=== PATIENT | male | born 1960 | race Caucasian/White ===

== ENCOUNTER 2020-09-03 16:22 | Emergency (ER) | payer MEDICAID ==
--- NOTE | 2020-09-03 16:40 | EDM.PDOC ---
ED HPI GENERAL MEDICAL PROBLEM - General Chief Complaint: General Stated Complaint: SOB/COVID SYMPTOMS Time Seen by Provider: 09/03/20 16:29 Source of Information: Reports: Patient History Limitations: Reports: No Limitations - History of Present Illness INITIAL COMMENTS - FREE TEXT/NARRATIVE: 60 YO WM PRESENTS TO ER COMPLAINING OF FLU-LIKE SYMPTOMS X 3 DAYS WITH KNOWN POSITIVE COVID TEST BY PCR OF 09/01/2020. PT WAS SEEN IN CLINIC AND STARTED ON A MEDROL DOSE PACK. PT REPORTS TODAY HIS SYMPTOMS HAVE BECOME WORSE WITH INCREASED BODY ACHES, HEADACHE AND SHORTNESS OF BREATH. PT WITH HISTORY OF COPD BUT DENIES USING HIS INHALERS. PT ALSO WITH FEVER BUT DENIES TAKING TYLENOL. PT HAS TAKEN ONLY 1/2 DAY DOSE OF PREDNISONE AT THIS TIME EVEN THOUGH MEDICATION WAS PRESCRIBED 3 DAYS AGO. Duration: Day(s): (2) Location: Reports: Generalized Quality: Reports: Ache Severity: Mild Improves with: Reports: None Worsens with: Reports: None Associated Symptoms: Reports: Cough, Fever/Chills, Headaches, Malaise, Shortness of Breath, Weakness. Denies: Nausea/Vomiting - Related Data Allergies Allergy/AdvReac Type Severity Reaction Status Date / Time No Known Allergies Allergy Verified 09/03/20 16:42 Home Meds: Home Meds Albuterol Sulfate [Albuterol Sulfate Hfa] 8.5 gm IH Q4HR #1 hfa.aer.ad 09/03/20 [Rx] dexAMETHasone [Decadron] 6 mg PO DAILY #5 tablet 09/03/20 [Rx] ED ROS GENERAL - Review of Systems Review Of Systems: See Below Constitutional: Reports: Fever, Chills, Malaise, Weakness, Fatigue HEENT: Reports: Rhinitis Respiratory: Reports: Cough Cardiovascular: Reports: No Symptoms Endocrine: Reports: No Symptoms GI/Abdominal: Reports: No Symptoms : Reports: No Symptoms Musculoskeletal: Reports: Joint Pain, Muscle Pain Skin: Reports: No Symptoms Neurological: Reports: No Symptoms Psychiatric: Reports: No Symptoms Hematologic/Lymphatic: Reports: No Symptoms Immunologic: Reports: No Symptoms ED EXAM, GENERAL - Physical Exam Exam: See Below Exam Limited By: No Limitations General Appearance: Alert, WD/WN, No Apparent Distress Nose: Normal Inspection, Normal Mucosa, No Blood Throat/Mouth: Normal Inspection, Normal Lips, Normal Teeth, Normal Gums, Normal Oropharynx, Normal Voice, No Airway Compromise Head: Atraumatic, Normocephalic Neck: Normal Inspection, Supple, Non-Tender, Full Range of Motion Respiratory/Chest: No Respiratory Distress, No Accessory Muscle Use, Chest Non- Tender, Wheezing Cardiovascular: Normal Peripheral Pulses, Regular Rate, Rhythm, No Edema, No Gallop, No JVD, No Murmur, No Rub GI/Abdominal: Normal Bowel Sounds, Soft, Non-Tender, No Organomegaly, No Distention, No Abnormal Bruit, No Mass Back Exam: Normal Inspection, Full Range of Motion, NT Extremities: Normal Inspection, Normal Range of Motion, Non-Tender, Normal Capillary Refill, No Pedal Edema Neurological: Alert, Oriented, CN II-XII Intact, Normal Cognition, Normal Gait, Normal Reflexes, No Motor/Sensory Deficits Psychiatric: Normal Affect, Normal Mood Skin Exam: Warm, Dry, Intact, Normal Color, No Rash Lymphatic: No Adenopathy #1 Interpretation EKG Date: 09/03/20 Time: 16:49 Rhythm: NSR Rate (Beats/Min): 121 [place]: Normal P-Wave: Present QRS: Normal ST-T: Normal QT: Normal Comparison: NA - No Prior EKG Course - Vital Signs Last Recorded V/S: Last Vital Signs Temp 38.7 C H 09/03/20 16:30 Pulse 123 H 09/03/20 16:30 Resp 28 H 09/03/20 16:30 BP 139/87 09/03/20 16:30 Pulse Ox 92 L 09/03/20 16:30 - Orders/Labs/Meds Orders: Active Orders 24 hr Category Date Time Status EKG Documentation Completion [RC] ASDIRECTED Care 09/03/20 16:47 Active Peripheral IV Care [RC] . DIRECTED Care 09/03/20 16:46 Active RT Aerosol Therapy [RC] ASDIRECTED Care 09/03/20 16:47 Active RT Post Treatment Assessment [RC] Click to Edit Care 09/03/20 18:08 Active RT Pre-Treatment Assessment [RC] Click to Edit Care 09/03/20 18:08 Active Albuterol [Ventolin HFA] Med 09/03/20 18:08 Once 8 gm INH ONETIME ONE Sodium Chloride 0.9% [Saline Flush] Med 09/03/20 16:46 Active 10 ml FLUSH Q8HR PRN Isolation [COMM] Routine Oth 09/03/20 16:29 Ordered Peripheral IV Insertion Adult [OM.PC] Routine Oth 09/03/20 16:46 Ordered EKG 12 Lead [EK] Stat Ther 09/03/20 16:46 Ordered Medication Orders Albuterol (Ventolin Hfa) 8 gm INH ONETIME ONE Stop: 09/03/20 18:09 Sodium Chloride (Saline Flush) 10 ml FLUSH Q8HR PRN PRN Reason: keep vein open Labs: Laboratory Tests 09/03/20 09/03/20 Range/Units 17:20 17:20 WBC 8.67 (5.00-10.00) 10^3/uL RBC 5.25 (4.50-6.00) 10^6/uL Hgb 15.8 (13.0-17.0) g/dL Hct 47.0 (40.0-52.0) % MCV 89.5 (82.0-92.0) fL MCH 30.1 (27.0-31.0) pg MCHC 33.6 (32.0-36.0) g/dL RDW 13.7 (11.5-14.5) % Plt Count 221 (150-400) 10^3/uL MPV 10.5 H (7.4-10.4) fL Immature Gran % (Auto) 0.1 (0.0-5.0) % Neut % (Auto) 87.9 H (50.0-70.0) % Lymph % (Auto) 6.5 L (20.0-40.0) % [place] % (Auto) 5.2 (2.0-8.0) % Eos % (Auto) 0.1 L (1.0-3.0) % Baso % (Auto) 0.2 (0.0-1.0) % Neut # (Auto) 7.62 H (2.50-7.00) 10^3/uL Lymph # (Auto) 0.56 L (1.00-4.00) 10^3/uL [place] # (Auto) 0.45 (0.10-0.80) 10^3/uL Eos # (Auto) 0.01 L (0.10-0.30) 10^3/uL Baso # (Auto) 0.02 (0.00-0.10) 10^3/uL Immature Gran # (Auto) 0.01 (0.00-0.50) 10^3/uL Sodium 139 (136-145) mmol/L Potassium 4.0 (3.3-5.3) mmol/L Chloride 99 (98-115) mmol/L Carbon Dioxide 28.3 (21.0-32.0) mmol/L Anion Gap 15.7 H (5-15) mmol/L BUN 19 (6-25) mg/dL Creatinine 0.76 (0.51-1.17) mg/dL Est Cr Clr Drug Dosing 104.06 mL/min Estimated GFR (MDRD) > 60 mL/min Glucose 97 (75 - 99) mg/dL Calcium 8.6 L (8.7-10.3) mg/dL Total Bilirubin 0.3 (0.2-1.0) mg/dL AST 40 H (15-37) U/L ALT 65 (12-78) U/L Alkaline Phosphatase 69 (46-116) IU/L Total Protein 7.7 (6.4-8.2) g/dL Albumin 3.65 (3.00-4.80) g/dL Meds: Medications Generic Name Dose Route Start Last Admin Trade Name Freq PRN Reason Stop Dose Admin Albuterol 8 gm 09/03/20 18:08 Ventolin Hfa INH 09/03/20 18:09 ONETIME ONE Sodium Chloride 10 ml 09/03/20 16:46 Saline Flush FLUSH Q8HR PRN keep vein open Discontinued Medications Generic Name Dose Route Start Last Admin Trade Name Freq PRN Reason Stop Dose Admin Acetaminophen 1,000 mg 09/03/20 16:46 09/03/20 17:25 Tylenol Extra Strength PO 09/03/20 16:47 1,000 mg ONETIME ONE Administration Albuterol/Ipratropium 3 ml 09/03/20 16:46 09/03/20 17:35 Duoneb 3.0-0.5 Mg/3 Ml NEB 09/03/20 16:47 3 ml ONETIME ONE Administration Dexamethasone 6 mg 09/03/20 17:41 09/03/20 17:51 Decadron IVPUSH 09/03/20 17:42 6 mg ONETIME ONE Administration Sodium Chloride 1,000 mls @ 999 mls/hr 09/03/20 16:46 09/03/20 17:24 Normal Saline IV 09/03/20 17:46 999 mls/hr .BOLUS ONE Administration - Radiology Interpretation Free Text/Narrative:: CXR- COARSE PULMONARY INFILTRATES CONSISTENT WITH VIRAL PNEUMONIA - Re-Assessments/Exams Free Text/Narrative Re-Assessment/Exam: 09/03/20 17:48 PT REPORTS HE'S FEELING BETTER. SHORTNESS OF BREATH IMPROVED. BODY ACHES AND HEADACHE IMPROVED. SAO2-97% ON RA Departure - Departure Time of Disposition: 17:57 Disposition: Home, Self-Care 01 Condition: Fair Clinical Impression: Pneumonia due to COVID-19 virus - Discharge Information Prescriptions: Albuterol Sulfate [Albuterol Sulfate Hfa] 8.5 gm IH Q4HR #1 hfa.aer.ad dexAMETHasone [Decadron] 6 mg PO DAILY #5 tablet Instructions: Community-Acquired Pneumonia, Adult Referrals: Gregorio Keen, SALES REPRES[employer]IVE CONSULTANT [Primary Care Provider] - Forms: ED Department Discharge Additional Instructions: 1. DISCHARGE HOME 2. DECADRON 6MG DAILY X 5 DAYS 3. ALBUTEROL HFA 2 PUFFS EVERY 4 HOURS AND NEEDED 4. MOTRIN 600MG EVERY 6 HOURS 5. TYLENOL 1000MG EVERY 6 HOURS 6. FOLLOW UP IN CLINIC IN 2 DAYS FOR RECHECK 7. RETURN TO ER FOR WORSENING SYMPTOMS 8. QUARANTINE X 10 DAYS Sepsis Event Note (ED) - Focused Exam Vital Signs: Vital Signs Temp Pulse Resp BP Pulse Ox 09/03/20 16:30 38.7 C H 123 H 28 H 139/87 92 L - My Orders Last 24 Hours: My Active Orders 09/03/20 16:29 Isolation [COMM] Routine 09/03/20 16:46 Peripheral IV Care [RC] . DIRECTED Sodium Chloride 0.9% [Saline Flush] 10 ml FLUSH Q8HR PRN Peripheral IV Insertion Adult [OM.PC] Routine EKG 12 Lead [EK] Stat 09/03/20 16:47 EKG Documentation Completion [RC] ASDIRECTED RT Aerosol Therapy [RC] ASDIRECTED 09/03/20 18:08 RT Post Treatment Assessment [RC] Click to Edit RT Pre-Treatment Assessment [RC] Click to Edit Albuterol [Ventolin HFA] 8 gm INH ONETIME ONE - Assessment/Plan Last 24 Hours: My Active Orders 09/03/20 16:29 Isolation [COMM] Routine 09/03/20 16:46 Peripheral IV Care [RC] . DIRECTED Sodium Chloride 0.9% [Saline Flush] 10 ml FLUSH Q8HR PRN Peripheral IV Insertion Adult [OM.PC] Routine EKG 12 Lead [EK] Stat 09/03/20 16:47 EKG Documentation Completion [RC] ASDIRECTED RT Aerosol Therapy [RC] ASDIRECTED 09/03/20 18:08 RT Post Treatment Assessment [RC] Click to Edit RT Pre-Treatment Assessment [RC] Click to Edit Albuterol [Ventolin HFA] 8 gm INH ONETIME ONE Assessment:: 1. COVID PNEUMONIA Plan: 1. DISCHARGE HOME 2. DECADRON 6MG DAILY X 5 DAYS 3. ALBUTEROL HFA 2 PUFFS EVERY 4 HOURS AND NEEDED 4. MOTRIN 600MG EVERY 6 HOURS 5. TYLENOL 1000MG EVERY 6 HOURS 6. FOLLOW UP IN CLINIC IN 2 DAYS FOR RECHECK 7. RETURN TO ER FOR WORSENING SYMPTOMS 8. QUARANTINE X 10 DAYS
[2020-09-03] MEDS ORDERED: Acetaminophen 500 MG Tab PO ONE (16:46)
[2020-09-03] MEDS ORDERED: Sodium Chloride 0.9% 1,000 ML IV ONE (16:46)
[2020-09-03] MEDS ORDERED: Sodium Chloride 0.9% 10 ML Syringe FLUSH PRN (16:46)
[2020-09-03] MEDS ORDERED: Albuterol/Ipratropium 3.0-0.5 MG/3 ML Neb Soln NEB ONE (16:46)
--- NOTE | 2020-09-03 17:23 | CR ---
[id number] RAD/RAD Chest PA And Lateral EXAM: RAD Chest PA And Lateral INDICATION: SHORTNESS OF BREATH, COVID POSITIVE. COMPARISON: None. DISCUSSION: Cardiomediastinal silhouette is normal in size and contour. Coarse pulmonary infiltrates bilaterally. No pneumothorax or pleural effusion IMPRESSION: Coarse pulmonary infiltrates bilaterally consistent with viral pneumonia. Gamal Kelly DO 09/03/20 [id number] Thank you for allowing us to participate in the care of your patient.
[2020-09-03] MEDS ORDERED: Dexamethasone 10 MG/ML SDV IVPUSH ONE (17:41)
[2020-09-03 17:51] LABS: ANION GAP 15.7 mmol/L (5-15); CHLORIDE,CL 99 mmol/L (98-115); SODIUM,NA 139 mmol/L (136-145)
[2020-09-03] MEDS ORDERED: Albuterol 8 GM Inhaler INH ONE (18:08)
== END 2020-09-03 19:00 | disposition home or self-care (01) ==
LOC: KA.ED 16:22
DX: U07.1 COVID-19 (principal); J12.89 Other viral pneumonia
CPT/HCPCS: 36415; 71046; 80053; 85025; 93005; 94640; 96374; 99284; 99285-25; A9270-GY; J1100; J7030; J7620-GY